=== PATIENT | female | born 1955 ===

== ENCOUNTER 2017-04-18 16:25 | Emergency (ER) | payer MEDICAID ==
[2017-04-18 16:40] VITALS: O2SAT 100; BMI 26.6
--- NOTE | 2017-04-18 16:59 | ED PDOC ---
Arrival/HPI - General Historian: Patient - General Chief Complaint: Finger,Hand,&Wrist Time Seen by Provider: 04/18/17 16:33 - History of Present Illness Narrative History of Present Illness (Text): 04/18/17 16:58 61yo female with no PMHX who present with complaint of right 3rd finger pain and reports head injury yesterday. States she tripped over her grandchild yesterday and hit her left sided forehead on the floor and right hand on the floor, injuring her 3rd finger. States she spoke with her director of fundraising and he told her to get head CT to r/o any head derangement. she did not take any analgesic. Denies LOC, headache, focal weakness, urinary incontinence, dizziness , any other complaint. (Sally Gil) Past Medical History - Provider Review Nursing Documentation Reviewed: Yes - Infectious Disease Hx of Infectious Diseases: None - Reproductive Menopause: Yes - Psychiatric Hx Substance Use: No - Anesthesia Hx Anesthesia: No Hx Anesthesia Reactions: No Hx Malignant Hyperthermia: No Family/Social History - Physician Review Nursing Documentation Reviewed: Yes Family/Social History: Unknown Family HX Smoking Status: Never Smoked Hx Alcohol Use: No Hx Substance Use: No Allergies/Home Meds Allergies/Adverse Reactions: Allergies No Known Allergies Allergy (Unverified 04/07/13 18:43) Review of Systems - Physician Review All systems were reviewed & negative as marked: Yes - Review of Systems Constitutional: Normal Eyes: Normal ENT: Normal Respiratory: Normal Cardiovascular: Normal Gastrointestinal: Normal Genitourinary Female: Normal Musculoskeletal: Arthralgias (right 3rd finger pain) Skin: Normal Neurological: Normal Endocrine: Normal Hemo/Lymphatic: Normal Psychiatric: Normal Physical Exam Vital Signs Reviewed: Yes Temperature: Afebrile Blood Pressure: Normal Pulse: Regular Respiratory Rate: Normal Appearance: Positive for: Well-Appearing, Non-Toxic, Comfortable Pain Distress: None Mental Status: Positive for: Alert and Oriented X 3 - Systems Exam Head: Present: Atraumatic, Normocephalic, Contusion (Very mild hematoma noted to left sided forehead with very small superfical healing abrasion) Pupils: Present: PERRL Extroacular Muscles: Present: EOMI Conjunctiva: Present: Normal Mouth: Present: Moist Mucous Membranes Neck: Present: Normal Range of Motion Respiratory/Chest: Present: Clear to Auscultation, Good Air Exchange. No: Respiratory Distress, Accessory Muscle Use Cardiovascular: Present: Regular Rate and Rhythm, Normal S1, S2. No: Murmurs Abdomen: Present: Normal Bowel Sounds. No: Tenderness, Distention, Peritoneal Signs Back: Present: Normal Inspection Upper Extremity: Present: Normal ROM, NORMAL PULSES, Tenderness (right 3rd finger), Swelling (Right 3rd finger), Neurovascularly Intact. No: Cyanosis, Edema, Deformity Lower Extremity: Present: Normal Inspection. No: Edema Neurological: Present: GCS=15, CN II-XII Intact, Speech Normal, Motor Func Grossly Intact, Normal Sensory Function, Normal Cerebellar Funct, Norm Deep Tendon Reflexes, Gait Normal, Memory Normal, Normal 2Pt Descrimination, Other ( No focal neurological deficit) Skin: Present: Warm, Dry, Normal Color. No: Rashes Psychiatric: Present: Alert, Oriented x 3, Normal Insight, Normal Concentration Vital Signs Pulse Resp BP Pulse Ox 04/18/17 18:19 65 18 116/64 100 04/18/17 16:38 64 24 118/68 100 Medical Decision Making ED Course and Treatment: 04/18/17 18:[address] - No acute finding Right hand xray - No acute fracture/dislocation Finger splint placed. Pt referred to her PMD/ortho TRT ED for any new or worsening symptoms (Salyl Gil A) - RAD Interpretation Radiology Orders: 04/18/17 16:41 HEAD W/O CONTRAST [CT] Stat HAND RIGHT 3 VIEWS [RAD] Stat - Medication Orders Current Medication Orders: Discontinued Medications Ibuprofen (Motrin Tab) 600 mg PO STAT STA Stop: 04/18/17 18:11 Last Admin: 04/18/17 18:21 Dose: Not Given Non-Admin Reason: Patient Refused MAR Pain/Vitals Document 04/18/17 18:21 SS (Rec: 04/18/17 18:21 [place] [facility] [id number] Pain Reassessment Is This A Pain ReAssessment? No Sleep Is patient sleeping during reassessment? No Presence of Pain Presence of Pain No Disposition/Present on Arrival - Present on Arrival Any Indicators Present on Arrival: No History of DVT/PE: No History of Uncontrolled Diabetes: No Urinary Catheter: No History of Decub. Ulcer: No History Surgical Site Infection Following: None - Disposition Have Diagnosis and Disposition been Completed?: Yes Disposition Time: 18:15 Patient Plan: Discharge - Disposition Diagnosis: Finger sprain, Head injury Disposition: HOME/ ROUTINE Condition: STABLE Discharge Instructions (ExitCare): Head Injury (ED), Finger Sprain (ED) Additional Instructions: Follow up with your doctor/orthopedist Return to ED for any new or worsening symptoms Prescriptions: Ibuprofen [Motrin Tab] 600 mg PO Q6 #20 tab Referrals: Valdemar Lim MD [Primary Care Provider] - Follow up with primary Priyanka Abbott MD [Staff Provider] - Follow up with primary Forms: [employer] ([employer])
--- NOTE | 2017-04-18 17:36 | CT ---
PROCEDURE: CT HEAD WITHOUT CONTRAST. HISTORY: s/p head injury COMPARISON: None available. TECHNIQUE: Axial computed tomography images were obtained through the head/brain without intravenous contrast. Radiation dose: Total exam DLP = 1161.54 mGy-cm. This CT exam was performed using one or more of the following dose reduction techniques: Automated exposure control, adjustment of the mA and/or kV according to patient size, and/or use of iterative reconstruction technique. FINDINGS: HEMORRHAGE: No intracranial hemorrhage. BRAIN: No mass effect or edema. No atrophy or chronic microvascular ischemic changes. VENTRICLES: Unremarkable. No hydrocephalus. CALVARIUM: Unremarkable. PARANASAL SINUSES: Almost complete opacification of the right maxillary sinus may represent acute or chronic sinusitis. MASTOID AIR CELLS: Unremarkable as visualized. No inflammatory changes. OTHER FINDINGS: The right globe has abnormal shape and small in size. IMPRESSION: No evidence of acute intracranial hemorrhage intracranial collection mass effect or midline shift. Almost complete opacification of the right maxillary sinus.
[2017-04-18 18:20] VITALS: BP 116/64; PULSE 65; RESP 18
--- NOTE | 2017-04-18 18:21 | RAD ---
PROCEDURE: Right Hand Radiographs. HISTORY: 3rd finger pain s/p trauma COMPARISON: None. FINDINGS: BONES: Normal. No fracture. JOINTS: Arthritic degenerative changes SOFT TISSUES: Normal. OTHER FINDINGS: None. IMPRESSION: No evidence of acute fracture.
== END 2017-04-18 18:27 | disposition home or self-care (01) ==
LOC: ED 16:25
DX: S09.90XA Unspecified injury of head, initial encounter (principal); S63.612A Unspecified sprain of right middle finger, initial encounter; W01.0XXA Fall on same level from slipping, tripping and stumbling without subsequent striking against object, initial encounter